=== PATIENT | female | born 1955 | race Caucasian/White ===

== ENCOUNTER 2016-09-01 21:10 | Emergency (ER) | payer BC, OTHER ==
[2016-09-01 21:16] VITALS: BP 160/75; PULSE 73; RESP 18; TEMP 97.4
[2016-09-01] MEDS ORDERED: DIPH,PERTUS(ACELL)TETVAC-LF 0.5 ML VIAL IM ONE (21:34)
[2016-09-01] MEDS ORDERED: HYDROcodone/APAP 5-325MG 1 EACH TAB PO STA (21:34)
--- NOTE | 2016-09-01 21:34 | ED ---
Burn/Smoke HPI - General Chief complaint: Burn/Smoke Inhalation Stated complaint: rt hand burn Time Seen by Provider: 09/01/16 21:19 Source: patient, RN notes reviewed Mode of arrival: ambulatory Limitations: no limitations - History of Present Illness Initial comments: 61-year-old female presents to the burn to the right hand. Patient removed a steel pain and inverted her hand. Patient does not recall her last tetanus. Patient states her pain is moderate worsening movement or touch. Patient states she has no other injuries at this incident. Patient states she was concerned due to her symptoms so she thought that she should be evaluated. Patient denies any recent fever, chills, shortness of breath, chest pain, back pain, abdominal pain, nausea vomiting, numbness or tingling, dysuria or hematuria, constipation or diarrhea, headaches or visual changes, or any other current symptoms. - Related Data Home Medications Medication Instructions Recorded Confirmed Aspirin 81 mg PO DAILY 05/12/14 09/01/16 Ibuprofen [Motrin] 800 mg PO Q8HR PRN 05/12/14 09/01/16 Losartan-Hctz 50-12.5 mg [Hyzaar 1 each PO DAILY 05/12/14 09/01/16 50-12.5] Omeprazole 40 mg PO AC-BRKFST 05/12/14 09/01/16 Atorvastatin [Lipitor] 20 mg PO DAILY 09/01/16 09/01/16 metFORMIN HCL [Glucophage] 500 mg PO BID 09/01/16 09/01/16 Previous Rx's Medication Instructions Recorded Hydrocodone/Acetaminophen [Frederick 1 each PO Q6HR PRN #5 tab 09/01/16 5-325] Allergies Allergy/AdvReac Type Severity Reaction Status Date / Time latex AdvReac Mild Rash/Hives Verified 09/01/16 21:16 Sulfa (Sulfonamide AdvReac Rash/Hives Verified 09/01/16 21:16 Antibiotics) Review of Systems ROS Statement: Those systems with pertinent positive or pertinent negative responses have been documented in the HPI. ROS Other: All systems not noted in ROS Statement are negative. Past Medical History Past Medical History: GERD/Reflux, Hypertension Additional Past Medical History / Comment(s): FELL 05/07/14 AND INJURED RT HAND- STATES IT IS BRUISED AND SWOLLEN History of Any Multi-Drug Resistant Organisms: None Reported Past Surgical History: Cholecystectomy, Tubal Ligation Additional Past Surgical History / Comment(s): colonoscopy Past Anesthesia/Blood Transfusion Reactions: No Reported Reaction Smoking Status: Former smoker Past Alcohol Use History: Heavy, Occasional Past Drug Use History: None Reported - Past Family History Father Family Medical History: Cancer General Exam - General Exam Comments Initial Comments: General: The patient is awake and alert, in no distress, and does not appear acutely ill. Neck: The neck is supple, there is no tenderness. Cardiovascular: There is a regular rate and rhythm. No murmur, rub or gallop is appreciated. Respiratory: Lungs are clear to auscultation, respirations are non-labored, breath sounds are equal. No wheezes, stridor, rales, or rhonchi. Musculoskeletal: Sensation intact with 2+ pulses. X-ray. Fund motion of right wrist and right hand. Patient is. Of second-degree burn to the palm and first degree ndiaye noted around. Full range of motion. 5 out of 5 muscle strength testing. Neurological: CN II-XII intact, There are no obvious motor or sensory deficits. Coordination appears grossly intact. Speech is normal. Skin: Skin is warm and dry and no rashes or lesions are noted. Psychiatric: Normal mood and affect. Limitations: no limitations Course Vital Signs 09/01/16 21:13 Temperature 97.4 F L Pulse Rate 73 Respiratory 18 Rate Blood Pressure 160/75 O2 Sat by Pulse 99 Oximetry Medical Decision Making - Medical Decision Making 65-year-old female presents for appears to be a first and second-degree burn to the right hand. This time we discussed care follow-up return parameters. We discussed all the patient's questions. He stated the Damien management. The plan. They will be discharged home. Disposition Clinical Impression: Burn of hand, right, second degree Disposition: HOME SELF-CARE Condition: Stable Instructions: Second Degree Burn (ED) Additional Instructions: Please use medication as discussed. Please follow up with family doctor if symptoms have not improved over the next two days. Please return to the emergency room if your symptoms increase or worsen or for any other concerns. Prescriptions: Hydrocodone/Acetaminophen [Frederick 5-325] 1 each PO Q6HR PRN #5 tab PRN Reason: Pain Referrals: Cesar Asif III, MD [Primary Care Provider] - 1-2 days Time of Disposition: 21:34
== END 2016-09-01 22:08 | disposition home or self-care (01) ==
LOC: EC 21:10
DX: T23.251A Burn of second degree of right palm, initial encounter (principal); X15.3XXA Contact with hot saucepan or skillet, initial encounter; Y93.G3 Activity, cooking and baking; Z23 Encounter for immunization; K21.9 Gastro-esophageal reflux disease without esophagitis; I10 Essential (primary) hypertension; Z88.2 Allergy status to sulfonamides; Z91.040 Latex allergy status; Z79.899 Other long term (current) drug therapy; Z79.82 Long term (current) use of aspirin
CPT/HCPCS: 16020; 90471; 90715; 99283

== ENCOUNTER → 2017-04-11 | Outpatient (CLI) | payer OTHER ==
--- NOTE | 2017-04-15 10:27 | MM ---
Reason for exam: screening (asymptomatic). Last mammogram was performed 2 years and 9 months ago. History: Patient is postmenopausal and had first child at age 30. Physical Findings: A clinical breast exam by your physician is recommended on an annual basis and results should be correlated with mammographic findings. MG Screening Mammo w CAD Bilateral CC and MLO view(s) were taken. Prior study comparison: July 15, 2014, bilateral MG screening mammo w CAD. May 21, 2013, bilateral digital screening mammo w/CAD. There are scattered fibroglandular densities. No significant changes when compared with prior studies. ASSESSMENT: Negative, BI-RAD 1 RECOMMENDATION: Routine screening mammogram of both breasts in 1 year.
== END | disposition home or self-care (01) ==
LOC: RADMAMWWP 09:49
PROVIDERS: ATTEND Family Medicine
DX: Z12.31 Encounter for screening mammogram for malignant neoplasm of breast (principal)
CPT/HCPCS: 77067

== ENCOUNTER → 2018-05-22 | Outpatient (CLI) | payer OTHER ==
--- NOTE | 2018-05-26 17:40 | BD ---
EXAMINATION TYPE: Axial Bone Density DATE OF EXAM: 05/22/2018 COMPARISON: NONE CLINICAL HISTORY: 62 YR OLD FEMALE....ICD-10 CODE: Z78.0 POST MENOPAUSAL Height: 65 Weight: 198 FRAX RISK QUESTIONS: History of Fracture in Adulthood: YES RISK FACTORS HISTORY OF: HX OF LT FOOT FX >50 YRS OLD Family History of Osteoporosis: YES, PATERNAL Active: YES Diet low in dairy products/other sources of calcium: YES Postmenopausal woman: YES AT AGE 51 YRS OLD MEDICATIONS: Additional Medications: BP MEDS, METFORMIN, REFLUX MEDS, STATIN FOR CHOLESTEROL, VIT D Additional History: HYPERTENSION, DIABETIC, REFLUX AND CHOLESTEROL EXAM MEASUREMENTS: Bone mineral densitometry was performed using the [employer] System. Bone mineral density as measured about the Lumbar spine is: ----- L1-L4(G/cm2): 1.248 T Score Values are as follows: ----- L1: 1.1 ----- L2: 0.4 ----- L3: -0.1 ----- L4: 0.9 ----- L1-L4: 0.6 Bone mineral density FIRST BONE DENSITY SCAN......BASELINE STUDY Bone mineral density about the R hip (g/cm2): 0.872 Bone mineral density about the L hip (g/cm2): 0.875 T Score values are as follows: -----R Neck: -1.1 -----L Neck: -1.9 -----R Total: -1.1 -----L Total: -1.1 Bone mineral density IS FIRST DEXA SCAN....BASELINE STUDY FRAX%s: THERE IS A 15.8% CHANCE FOR A MAJOR OSTEOPOROTIC FX AND A 2.1% FOR HIP.....PROBABILITY OF F X IN 10 YRS TIME IMPRESSION: Osteopenia (T Score between -2.5 and -1). There is slightly increased risk of fracture and the patient may be considered for treatment. Re-Screen 2-5 years. NOTE: T-SCORE=SD OF THE YOUNG ADULT MEAN.
== END | disposition home or self-care (01) ==
LOC: RADBDWWP 12:52
PROVIDERS: ATTEND Family Medicine
DX: Z13.820 Encounter for screening for osteoporosis (principal); M85.80 Other specified disorders of bone density and structure, unspecified site; Z78.0 Asymptomatic menopausal state
CPT/HCPCS: 77080

== ENCOUNTER → 2019-08-31 | Outpatient (CLI) | payer MEDICARE, BC ==
--- NOTE | 2019-09-01 13:28 | MM ---
Reason for exam: screening (asymptomatic). Last mammogram was performed 2 years and 5 months ago. History: Patient is postmenopausal and had first child at age 30. Physical Findings: A clinical breast exam by your physician is recommended on an annual basis and results should be correlated with mammographic findings. MG 3D Screening Mammo W/Cad Bilateral CC and MLO view(s) were taken. Prior study comparison: April 11, 2017, bilateral MG screening mammo w CAD. July 15, 2014, bilateral MG screening mammo w CAD. There are scattered fibroglandular densities. No significant changes when compared with prior studies. ASSESSMENT: Benign, BI-RAD 2 RECOMMENDATION: Routine screening mammogram of both breasts in 1 year.
== END | disposition home or self-care (01) ==
LOC: RADMAMWWP 11:29
PROVIDERS: ATTEND Family Medicine
DX: Z12.31 Encounter for screening mammogram for malignant neoplasm of breast (principal)
CPT/HCPCS: 77063; 77067

== ENCOUNTER → 2020-11-10 | Outpatient (CLI) | payer MEDICARE, BC ==
[2020-11-10 11:58] LABS: Basophils % (A) 0 %; Eosinophils % (A) 1 %; HGB 11.7 gm/dL (11.4-16.0); Lymphocytes # (A) 0.9 k/uL (1.0-4.8); Lymphocytes % (A) 24 %; MCH 28.7 pg (25.0-35.0); MCHC 32.3 g/dL (31.0-37.0); MCV 88.9 fL (80.0-100.0); Mean Platelet Volume 10.2; Monocytes # (A) 0.2 k/uL (0-1.0); Monocytes % (A) 7 %; Neutrophils # (A) 2.4 k/uL (1.3-7.7); Neutrophils % (A) 65 %; Platelet Count 138 k/uL (150-450); RBC 4.05 m/uL (3.80-5.40); RDW 13.5 % (11.5-15.5); WBC 3.6 k/uL (3.8-10.6)
[2020-11-10 12:12] LABS: African American GFR (CKD) >90 (>60 ml/min/1.73 sqM); Anion Gap 5 mmol/L; Blood Urea Nitrogen 14 mg/dL (7-17); Carbon Dioxide 28 mmol/L (22-30); Chloride 97 mmol/L (98-107); Non-African American GFR(CKD) >90 (>60 ml/min/1.73 sqM); Potassium 4.7 mmol/L (3.5-5.1); Sodium 130 mmol/L (137-145)
== END ==
LOC: LABPAT 10:43
PROVIDERS: ATTEND Obstetrics & Gynecology Obstetrics
DX: Z01.818 Encounter for other preprocedural examination (principal); N81.10 Cystocele, unspecified; N81.6 Rectocele; I10 Essential (primary) hypertension; I45.10 Unspecified right bundle-branch block; R94.31 Abnormal electrocardiogram [ECG] [EKG]
CPT/HCPCS: 36415; 80051; 82565; 84520; 85025; 87086; 93005

== ENCOUNTER 2020-11-20 07:42 | Observation (INO) | payer MEDICARE, BC ==
[2020-11-15 14:18] VITALS: BMI 25.3
[~2020-11-20 07:42] MED LIST: ACETAMINOPHEN IV (For NPO) 1,000 MG in EMPTY BAG 1 BAG IVPB PRN; DEXAMETHASONE SOD PHOSPHATE 4 MG/ML 1 ML VIAL IV ONE; HYDROmorphone 0.5 MG/0.5 ML SYRINGE IVP PRN; LIDOCAINE 1% (10MG/ML) FOR IV START INTRADERMA PRN; MIDAZOLAM 2 MG/2 ML VIAL IV PRN; ONDANSETRON 4 MG/2 ML VIAL IVP ONE
[2020-11-20] MEDS: LACTATED RINGERS 1,000 ML IV SCH (08:23)
--- NOTE | 2020-11-20 09:23 | P.HPOB ---
History of Present Illness H&P Date: 11/20/20 Chief Complaint: Uterine procidentia, cystocele, rectocele This is a 65-year-old female with complaints of pelvic pressure. Patient was seen with her primary care with noted increasing discomfort of a cystocele/rectocele. Patient was diagnosed with a small cystocele years ago and she started having issues with that at the end of June after she was doing some extreme yardwork. Patient has been noting increasing pelvic discomfort at that time. Patient frequently has to splint to have a bowel movement. Patient denies any vaginal bleeding. Patient denies urinary incontinence. Review of Systems Constitutional: Denies chills, Denies fatigue, Denies fever Ears, nose, mouth and throat: Denies headache Cardiovascular: Denies leg edema Respiratory: Denies dyspnea Gastrointestinal: Denies constipation, Denies diarrhea Genitourinary: Denies difficulty voiding, Denies mixed incontinence Menstruation: Reports postmenopausal Past Medical History Past Medical History: Cancer, GERD/Reflux, Hyperlipidemia, Hypertension Additional Past Medical History / Comment(s): BUNDLE BRANCH BLOCK- EKG HISTORY, SKIN CANCER History of Any Multi-Drug Resistant Organisms: None Reported Past Surgical History: Cholecystectomy, Tubal Ligation Additional Past Surgical History / Comment(s): colonoscopy Past Anesthesia/Blood Transfusion Reactions: No Reported Reaction Smoking Status: Former smoker - Past Family History Father Family Medical History: Cancer Medications and Allergies Home Medications Medication Instructions Recorded Confirmed Type Aspirin 81 mg PO DAILY 05/12/14 11/14/20 History Ibuprofen [Motrin] 600 mg PO Q8HR PRN 05/12/14 11/14/20 History Losartan-Hctz 50-12.5 mg [Hyzaar 0.5 tab PO DAILY 05/12/14 11/14/20 History 50-12.5] Omeprazole 40 mg PO AC-BRKFST 05/12/14 11/14/20 History Allergies Allergy/AdvReac Type Severity Reaction Status Date / Time latex AdvReac Mild Rash/Hives Verified 11/20/20 08:05 Sulfa (Sulfonamide AdvReac Rash/Hives Verified 11/20/20 08:05 Antibiotics) Exam Osteopathic Statement: *. No significant issues noted on an osteopathic structural exam other than those noted in the History and Physical/Consult. Vital Signs Temp Pulse Resp BP Pulse Ox 11/20/20 08:11 97.9 F 58 L 16 176/83 100 Intake and Output 11/19/20 11/20/20 11/20/20 22:59 06:59 14:59 Other: Weight 75.6 kg Targeted physical exam is performed in this date in general this a well- nourished well-developed non female in no acute distress, breathing is noted to be nonlabored, heart has a regular rate and rhythm, her breast exam is deferred, abdomen is soft and nontender on genitourinary exam the bladder is nontender to palpation a cystocele is present, grade 3, cervix is healthy nontender appearance is healthy, uterus is mobile midline and small, no adnexal masses are appreciated. Rectocele is appreciated, grade 2. Assessment and Plan (1) Uterine procidentia Current Visit: Yes Status: Acute Code(s): N81.3 - COMPLETE UTEROVAGINAL PROLAPSE SNOMED Code(s): 74764119 (2) Cystocele Current Visit: Yes Status: Acute Code(s): ASZ2045 - SNOMED Code(s): 479046058 (3) Rectocele Current Visit: Yes Status: Acute Code(s): N81.6 - RECTOCELE SNOMED Code(s): 2446200 Plan: 65-year-old female with desire for definitive treatment for her cystocele, uterine procidentia, rectocele. Patient notes increasing discomfort. Patient failed pessary fitting. Plan vaginal hysterectomy with anterior colporrhaphy, posterior colporrhaphy with cystoscopy, possible total abdominal hysterectomy to complete the procedure. Procedure is reviewed ACOG pamphlet is given to patient prior to surgery to review. Ultrasound was performed no adnexal masses were appreciated uterus is noted to be small and postmenopausal. Risser reviewed with the patient in general including but not limited to infection, bleeding, damage to bladder, bowel, ureteric injury. Patient states understanding and questions are answered. Will proceed.
[2020-11-20] MEDS ORDERED: PROPOFOL 10 MG/ML 20 ML VIAL IV ONE (09:43)
[2020-11-20] MEDS ORDERED: fentaNYL (PF) 50 MCG/ML 2 ML AMP ONE (09:43)
[2020-11-20] MEDS ORDERED: MORPHINE SULFATE (PF) 0.3 MG/0.3 ML SYR ONE (09:43)
[2020-11-20] MEDS ORDERED: LIDOCAINE 1% INJ 10MG/ML (20 ML MDV) ONE (09:43)
[2020-11-20] MEDS ORDERED: SUCCINYLCHOLINE CHLORIDE 100 MG/5 ML SYR IV ONE (09:43)
[2020-11-20] MEDS ORDERED: MIDAZOLAM 2 MG/2 ML VIAL ONE (09:43)
[2020-11-20] MEDS ORDERED: ROCURONIUM 10 MG/ML (5 ML VIAL) IV ONE (09:43)
[2020-11-20] MEDS ORDERED: HYDROmorphone (PF) 1 MG/ML ONE (09:43)
[2020-11-20] MEDS ORDERED: NEOSTIGMINE 1 MG/ML 10 ML VIAL ONE (09:43)
[2020-11-20] MEDS ORDERED: GLYCOPYRROLATE 0.2 MG/ML 2 ML VIAL ONE (09:43)
[2020-11-20] MEDS ORDERED: VASOPRESSIN 20 UNIT/ML 1 ML VIAL SQ ONE (10:09)
[2020-11-20] MEDS ORDERED: BACITRACIN ZINC 500 UNIT/GM OINT 28.4 GM TUBE TOPICAL ONE (10:09)
[2020-11-20] MEDS ORDERED: IBUPROFEN 600 MG TAB PO PRN (11:36)
[2020-11-20] MEDS ORDERED: Acetaminophen-Codeine 300-30mg TAB PO PRN ×2 (11:36)
[2020-11-20] MEDS ORDERED: SIMETHICONE 80 MG CHEWABLE PO PRN (11:36)
[2020-11-20] MEDS ORDERED: IBUPROFEN IV 800 MG in SODIUM CHLORIDE 0.9% 250 ML IV ONE (11:38)
--- NOTE | 2020-11-20 12:56 | P.ANPRN ---
Procedure Note - Anesthesia - Epidural/Spinal Spinal Time Out Performed: Yes Date of Procedure: 11/20/20 Procedure Start Time: 08:51 Procedure Stop Time: 08:55 Location of Patient: PreOp Indication: Acute Post-Operative Pain, Requested by Surgeon Sedation Type: Sedate with meaningful contact maintained Preparation: Sterile Prep Position: Sitting Needle Guage: 25 Blood Aspirated: No Pain Paresthesia on Injection Noted: No Events: Uneventful and Well Tolerated (duramorph 300 david plus fentanyl 25 david)
[2020-11-20] MEDS: ONDANSETRON 4 MG/2 ML VIAL IVP PRN (17:19)
[2020-11-20] MEDS: METOCLOPRAMIDE 5 MG/ML 2 ML VIAL IVP PRN (19:41)
[2020-11-20] MEDS ORDERED: SCOPOLAMINE 1.5MG/72HR PATCH TRANSDERM SCH (20:00)
[2020-11-20] MEDS: SENNOSIDES-DOCUSATE SODIUM 1 EACH TAB PO SCH (21:23)
[2020-11-21] MEDS: ONDANSETRON 4 MG/2 ML VIAL IVP PRN ×2 (00:19→08:26)
[2020-11-21] MEDS: METOCLOPRAMIDE 5 MG/ML 2 ML VIAL IVP PRN (05:29)
[2020-11-21 06:47] LABS: Basophils % (A) 0 %; Eosinophils % (A) 0 %; HGB 10.1 gm/dL (11.4-16.0); Lymphocytes # (A) 0.8 k/uL (1.0-4.8); Lymphocytes % (A) 14 %; MCH 28.6 pg (25.0-35.0); MCHC 32.7 g/dL (31.0-37.0); MCV 87.5 fL (80.0-100.0); Mean Platelet Volume 10.6; Monocytes # (A) 0.3 k/uL (0-1.0); Monocytes % (A) 6 %; Neutrophils # (A) 4.7 k/uL (1.3-7.7); Neutrophils % (A) 79 %; Platelet Count 109 k/uL (150-450); RBC 3.55 m/uL (3.80-5.40); RDW 13.3 % (11.5-15.5)
--- NOTE | 2020-11-21 09:39 | P.PN ---
Subjective Progress Note Date: 11/21/20 Principal diagnosis: POD 1 [facility] [place] patient struggled with nausea and vomiting overnight. she was given reglan for nausea in addition to a scopolamine patch. she states she continues to feel nauseated this am. she hasnt tried even clear liquids due to nausea. she had a small amount of bleeding vaginally with vomiting but that resolved. she denies pain. she is noting some right calf pain with nurse assessment this am. she has her PAS sticking on as she has been in bed with the nausea. Objective - Vital Signs Vital signs: Vital Signs Temp 97.7 F 11/21/20 08:00 Pulse 61 11/21/20 08:00 Resp 18 11/21/20 08:00 BP 110/64 11/21/20 08:00 Pulse Ox 100 11/21/20 08:00 Intake & Output 11/20/20 11/21/20 11/21/20 18:59 06:59 18:59 Intake Total 1400 600 Output Total 1252 820 1 Balance 148 -220 -1 Weight 75.6 kg Intake: IV 1400 Intake, IV Titration 600 Amount Lactated Ringers 1,000 ml 600 @ 20 mls/hr IV .Q24H LE Rx#:[id number] Output: Urine 700 700 Uretheral (Chen) 300 Emesis 402 120 1 Estimated Blood Loss 150 Other: Voiding Method Indwelling Catheter - Constitutional General appearance: Present: average body habitus, cooperative, no acute distress - Gastrointestinal Gastrointestinal Comment(s): soft non tender. - Genitourinary Genitourinary Comment(s): pad examined with minimal old blood appreciated. - Labs CBC & Chem 7: 11/21/20 06:31 Labs: Abnormal Lab Results - Last 24 Hours (Table) 11/21/20 Range/Units 06:31 RBC 3.55 L (3.80-5.40) m/uL Hgb 10.1 L (11.4-16.0) gm/dL Hct 31.0 L (34.0-46.0) % Plt Count 109 L (150-450) k/uL Lymphocytes # 0.8 L (1.0-4.8) k/uL Assessment and Plan (1) Uterine procidentia Current Visit: Yes Status: Acute Code(s): N81.3 - COMPLETE UTEROVAGINAL PROLAPSE SNOMED Code(s): 99961110 (2) Cystocele Current Visit: Yes Status: Acute Code(s): GJC3065 - SNOMED Code(s): 655807948 (3) Rectocele Current Visit: Yes Status: Acute Code(s): N81.6 - RECTOCELE SNOMED Code(s): 6345459 Plan: patient is struggling with post operative nausea and vomitting this am, will plan to continue IVF and antiemetics. chen discontinued this am, will await spontaneous void. reevaluate patient condition later this afternoon.
[2020-11-21] MEDS: SENNOSIDES-DOCUSATE SODIUM 1 EACH TAB PO SCH ×2 (10:09→22:29)
[2020-11-21] MEDS ORDERED: ACETAMINOPHEN TAB 325 MG TAB PO PRN (11:38)
[2020-11-21] MEDS: PANTOPRAZOLE 40 MG TABLET PO SCH (21:26)
[2020-11-22] MEDS: LACTATED RINGERS 1,000 ML IV SCH (00:06)
[2020-11-22 02:21] VITALS: PULSE 54
[2020-11-22] MEDS: PANTOPRAZOLE 40 MG TABLET PO SCH (07:49)
[2020-11-22] MEDS: SENNOSIDES-DOCUSATE SODIUM 1 EACH TAB PO SCH (07:49)
[2020-11-22 08:35] VITALS: BP 144/83; RESP 16; TEMP 98.1
--- NOTE | 2020-11-22 09:02 | P.PN ---
Subjective Progress Note Date: 11/22/20 Principal diagnosis: Postop day 2, vaginal hysterotomy, anterior colporrhaphy, posterior colporrhaphy Patient is doing well this morning. She states she feels much more awake from anesthesia. She has multiple spontaneous voids. Postvoid residuals remain a proximally 200. Patient denies any vaginal bleeding. Nausea and vomiting has resolved. She states her pain is well-controlled. Objective - Vital Signs Vital signs: Vital Signs Temp 98.1 F 11/22/20 08:07 Pulse 54 L 11/22/20 08:07 Resp 16 11/22/20 08:07 BP 144/83 11/22/20 08:07 Pulse Ox 94 L 11/22/20 08:07 Intake & Output 11/21/20 11/22/20 11/22/20 18:59 06:59 18:59 Output Total 851 3650 Balance -851 -3650 Output: Urine 850 1825 Post Void Residual 0 1825 Emesis 1 Other: Voiding Method Toilet # Voids 2 - Constitutional General appearance: Present: average body habitus, cooperative, no acute distress - Gastrointestinal General gastrointestinal: Present: normal bowel sounds, soft - Genitourinary Genitourinary Comment(s): No bleeding appreciated. Repair appears intact. - Psychiatric Psychiatric: Present: A&O x's 3, appropriate affect, intact judgment & insight - Labs CBC & Chem 7: 11/21/20 06:31 Assessment and Plan (1) Uterine procidentia Current Visit: Yes Status: Acute Code(s): N81.3 - COMPLETE UTEROVAGINAL PROLAPSE SNOMED Code(s): 89455307 (2) Cystocele Current Visit: Yes Status: Acute Code(s): UFB5744 - SNOMED Code(s): 530442567 (3) Rectocele Current Visit: Yes Status: Acute Code(s): N81.6 - RECTOCELE SNOMED Code(s): 9378842 Plan: Patient is doing well this morning. Ambulating and voiding without difficulty. We will do a couple more postvoid residual to assess urinary function. Advance diet to regular. Inspected discharge home later today.
--- NOTE | 2020-11-22 13:35 | P.DS ---
Providers Date of admission: 11/21/20 07:40 Expected date of discharge: 11/22/20 Attending physician: Aminah Ashford Primary care physician: Caprice Wells - Discharge Diagnosis(es) (1) Uterine procidentia Current Visit: Yes Status: Acute (2) Cystocele Current Visit: Yes Status: Acute (3) Rectocele Current Visit: Yes Status: Acute Hospital Course: This is a 65 yo female with known pelvic organ prolapse that presented to the hospital for scheduled VH/AC/PC. she underwent surgery [facility]. post operatively she did struggle with significant nausea and vomiting. she had resolution of the nausea and vomiting yesterday afternoon. she has been tolerating clear liquids and a regular diet now without nausea or vomiting. she in addition had some difficulty with spontaneous voids. she would void without feeling pressure to go and note a post void residual of 200. This am she had a spontaneous void of 700cc, with a post void residual of <50cc. she is feeling well and would like to go home. pain is well controlled with motrin and tylenol. Patient Condition at Discharge: Good Plan - Discharge Summary Discharge Rx Participant: Yes New Discharge Prescriptions: No Action Omeprazole 40 mg PO AC-BRKFST Ibuprofen [Motrin] 600 mg PO Q8HR PRN PRN Reason: Pain Aspirin 81 mg PO DAILY Losartan-Hctz 50-12.5 mg [Hyzaar 50-12.5] 0.5 tab PO DAILY Discharge Medication List Aspirin 81 mg PO DAILY 05/12/14 [History] Ibuprofen [Motrin] 600 mg PO Q8HR PRN 05/12/14 [History] Losartan-Hctz 50-12.5 mg [Hyzaar 50-12.5] 0.5 tab PO DAILY 05/12/14 [History] Omeprazole 40 mg PO AC-BRKFST 05/12/14 [History] Follow up Appointment(s)/Referral(s): Aminah Ashford DO [Doctor of Osteopathic Medicine] - 2 Weeks Patient Instructions/Handouts: Vaginal Hysterectomy (DC) Activity/Diet/Wound Care/Special Instructions: Spotting is a normal occurrence. If you develop heavy flow or concerns contact OBGYN office No heavy lifting, pushing or pulling anything weighing over a gallon of milk Discharge Disposition: HOME SELF-CARE
--- NOTE | 2020-11-23 13:01 | P.OP ---
Date of Procedure: 11/20/20 Preoperative Diagnosis: Uterine procidentia, cystocele grade 3, rectocele grade 2 Postoperative Diagnosis: Same Procedure(s) Performed: Vaginal hysterectomy, anterior colporrhaphy, posterior colporrhaphy Anesthesia: GETA Surgeon: Aminah Ashford Director Of [employer] #1: Ana Goldberg Estimated Blood Loss (ml): 150 IV fluids (ml): 900 Urine output (ml): 400 Pathology: other (Uterus cervix) Condition: stable Disposition: PACU Indications for Procedure: Symptomatically pelvic prolapse Operative Findings: Small postmenopausal uterus, ovaries normal bilaterally, after completion of the anterior colporrhaphy clear yellow urine was noted draining from the Thompson catheter. Rectal exam after rectocele repair revealed normal rectal mucosa. Description of Procedure: Patient was taken back to the operating suite where general anesthesia was obtained without difficulty by the anesthesia department. She was then prepped and draped in normal sterile fashion in the dorsal lithotomy position. A short weighted speculum was placed in the posterior vaginal vault. A latex free catheter was used to drain the bladder of clear yellow urine. A double-tooth tenaculum was used to grasp the cervix at 6:00, vasopressin was injected circumferentially around the cervix. A scalpel was used to circumferentially incise the vaginal mucosa off of the cervix. A Ray-Ricardo was then used to dissect the vaginal mucosa off of the cervix. The posterior cul-de-sac was then entered sharply and a longbilled weighted speculum was placed in the posterior vaginal vault. A Arlene clamp was then used to grasp the uterosacral ligaments these were transected and suture ligated. The bladder was then further dissected away from the operating field. The uterine arteries were then clamped with Arlene clamp, transected and suture ligated. Hemostasis was appreciated. This was performed bilaterally. An additional bite was taken with a Arlene clamp bilaterally, these were transected and suture ligated. Hemostasis was appreciated. A Arlene clamp was then used to clamp the bilateral uterine ovarian ligament. These were transected and suture ligated hemostasis was appreciated bilaterally. All pedicles were visualized and found to be hemostatic. Vaginal cuff mucosa was then closed with [id number] sutures of 0 Vicryl. The anterior colporrhaphy was then begun with injection of vasopressin the midline vaginal mucosa midline. A small incision was made with the vaginal mucosa with the Metzenbaum scissors, to dissect the mucosa off of the cystocele. The cut edges were held and splayed laterally with Allis clamps. The bladder was dissected along the lateral edges a combination of sharp and blunt dissection. A series of 2-0 Vicryl interrupted sutures were then placed sequentially along the lateral folds of the vesical vaginal space and brought together to tuck the bladder back while simultaneously bringing the lateral vaginal tissue together. The excess vaginal mucosa was then trimmed and the vagina was closed with a running locked 0 Vicryl suture. The Thompson catheter revealed clear yellow urine. The rectocele was then begun. Dilute vasopressin was infiltrated another posterior vaginal mucosa midline and into the perineal body. An inverted triangle was cut on the perineum. The posterior vaginal wall was opened vertically and midline up to the apex of the rectocele. The cut edges were then held and splayed laterally with a series of Allis clamps. The open vaginal mucosa was then dissected laterally with accommodation sharp and blunt dissectio n, exposing the perirectal fascia. The perirectal fascia was then reapproximated with interrupted 2-0 Vicryl sutures to draw the lateral folds together and talk the rectocele back. The excess vaginal mucosa was then trimmed. The posterior vaginal wall was then closed with running locked 2-0 Vicryl. The superficial perineal muscles were closed with running unlocked 0 Vicryl and the perineal skin was closed with running subcuticular. Rectal exam was done throughout the repair and at the end of the closure to ensure there were no sutures penetrating the rectal tissue. At the end of the procedure all sponge instrument and #were counted and found to be correct. Estimated blood loss 150 mL's. The Thompson catheter was draining clear yellow urine throughout the procedure. Patient tolerated procedure well and was taken the recovery room awake in stable condition.
== END 2020-11-22 14:16 | disposition home or self-care (01) ==
LOC: OR 07:42 → 6PED 11:34 → OR 11-21 07:32 → 6PED 11-21 07:40
PROVIDERS: ADMIT Obstetrics & Gynecology Obstetrics; ATTEND Obstetrics & Gynecology Obstetrics
DX: N81.3 Complete uterovaginal prolapse (principal); R11.2 Nausea with vomiting, unspecified; I10 Essential (primary) hypertension; E78.5 Hyperlipidemia, unspecified; Z79.82 Long term (current) use of aspirin; Z20.822 Contact with and (suspected) exposure to COVID-19; Z85.828 Personal history of other malignant neoplasm of skin; Z87.891 Personal history of nicotine dependence
CPT/HCPCS: 58270; 88305; 85025; 87635; G0378 ×2; C1762; J2250; J1100; J2710; J2765 ×2; J0690; J2405 ×2; J2001; J2274; J3010; J1170; J0131; J0330; J2704; 86850; 86900; 86901

== ENCOUNTER → 2021-12-12 | Outpatient (CLI) | payer MEDICARE, BC ==
--- NOTE | 2021-12-13 08:44 | MM ---
Reason for Exam: Screening (asymptomatic). Last mammogram was performed 1 year(s) and 1 month(s) ago. Patient History: Menarche at age 15. First Full-Term at age 30. Late child-bearing (after 30). Hysterectomy at age 65. Postmenopausal. Patient has history of breast feeding. Patient used Hormonal Contraceptives for 10 years. Risk Values: Lili 5 year model risk: 2.1%. NCI Lifetime model risk: 7.2%. Prior Study Comparison: 07/24/2002 Screening Mammogram, [facility]. 04/26/2005 Bilateral Screening Mammogram, [facility]. 11/13/2007 Bilateral Screening Mammogram, [facility]. 05/21/2013 Bilateral Screening Mammogram, [facility]. 07/15/2014 Bilateral Screening Mammogram, [facility]. 04/11/2017 Bilateral Screening Mammogram, [facility]. 08/31/2019 Bilateral Screening Mammogram, [facility]. 11/09/2020 Bilateral MG 3D screening mammo w/cad, [facility]. Tissue Density: There are scattered fibroglandular densities. Findings: Analyzed By CAD. There is no suspicious group of microcalcifications or new suspicious mass in either breast. No significant change from prior exams. Overall Assessment: Negative, BI-RAD 1 Management: Screening Mammogram of both breasts in 1 year. A clinical breast exam by your physician is recommended on an annual basis and results should be correlated with mammographic findings. Electronically signed and approved by: Kieran Solomon D.O.
--- NOTE | 2021-12-13 08:44 | MM ---
Reason for Exam: Screening (asymptomatic). Last mammogram was performed 1 year(s) and 1 month(s) ago. Patient History: Menarche at age 15. First Full-Term at age 30. Late child-bearing (after 30). Hysterectomy at age 65. Postmenopausal. Patient has history of breast feeding. Patient used Hormonal Contraceptives for 10 years. Risk Values: Lili 5 year model risk: 2.1%. NCI Lifetime model risk: 7.2%. Prior Study Comparison: 07/24/2002 Screening Mammogram, [facility]. 04/26/2005 Bilateral Screening Mammogram, [facility]. 11/13/2007 Bilateral Screening Mammogram, [facility]. 05/21/2013 Bilateral Screening Mammogram, [facility]. 07/15/2014 Bilateral Screening Mammogram, [facility]. 04/11/2017 Bilateral Screening Mammogram, [facility]. 08/31/2019 Bilateral Screening Mammogram, [facility]. 11/09/2020 Bilateral MG 3D screening mammo w/cad, [facility]. Tissue Density: There are scattered fibroglandular densities. Findings: Analyzed By CAD. There is no suspicious group of microcalcifications or new suspicious mass in either breast. No significant change from prior exams. Overall Assessment: Negative, BI-RAD 1 Management: Screening Mammogram of both breasts in 1 year. A clinical breast exam by your physician is recommended on an annual basis and results should be correlated with mammographic findings. Electronically signed and approved by: Kieran Solomon D.O.
== END | disposition home or self-care (01) ==
LOC: RADMAMWWP 15:36
PROVIDERS: ATTEND Family Medicine
DX: Z12.31 Encounter for screening mammogram for malignant neoplasm of breast (principal); Z78.0 Asymptomatic menopausal state
CPT/HCPCS: 77063; 77067

== ENCOUNTER → 2022-12-31 | Outpatient (CLI) | payer MEDICARE, BC ==
--- NOTE | 2022-12-31 18:52 | BD ---
EXAMINATION TYPE: Axial Bone Density DATE OF EXAM: 12/31/2022 CLINICAL HISTORY: 67 years old Female. ICD-10 CODE: M85.89 disorder of bone Height: 64 Weight: 169.5 FRAX RISK QUESTIONS: Alcohol (3 or more units per day): no Family History (Parent hip fracture): no Glucocorticoids (More than 3mos): no (Ex: prednisone, prednisolone, methylprednisolone, dexamethasone, and hydrocortisone). History of Fracture in Adulthood: yes Secondary Osteoporosis: 1. Type 1 Diabetes: no 2. Hyperthyroidism: no 3. Menopause before 45: no 4. Malnutrition: no 5. Chronic liver disease: no Rheumatoid Arthritis: no Current Tobacco Use: no RISK FACTORS HISTORY OF: Surgery to Spine/Hip(right/left)/Wrist (right/left): no Family History of Osteoporosis: no Active: yes Diet low in dairy products/other sources of calcium: no Postmenopausal woman: yes Additional History: EXAM MEASUREMENTS: Bone mineral densitometry was performed using the [employer] System. Bone mineral density as measured about the Lumbar spine is: ----- L1-L4(G/cm2): 1.048 T Score Values are as follows: ----- L1: -1.5 ----- L2: -1.9 ----- L3: -0.8 ----- L4: -0.5 ----- L1-L4: -1.1 Z Score Values are as follows: ----- L1: -0.2 ----- L2: -0.6 ----- L3: 0.4 ----- L4: 0.7 ----- L1-L4: 0.1 Bone mineral density has: decreased -16.0 % since study of: 05.22.2018 Bone mineral density about the R hip (g/cm2): 0.736 Bone mineral density about the L hip (g/cm2): 0.717 T Score values are as follows: -----R Neck: -2.1 -----L Neck: -2.5 -----R Total: -2.2 -----L Total: -2.3 Z Score values are as follows: -----R Neck: -0.8 -----L Neck: -1.2 -----R Total: -1.1 -----L Total: -1.2 Bone mineral density has: decreased -16.7 % since study of: 05.22.2018 FRAX%s: The graph provided illustrates a 22.5% chance for a major osteoporotic fx and a 5.4% chance f or the hips probability for fx in 10 years time. IMPRESSION: Osteopenia (T Score between -2.5 and -1). There is slightly increased risk of fracture and the patient may be considered for treatment. Re-Screen 2-5 years. NOTE: T-SCORE=SD OF THE YOUNG ADULT MEAN.
--- NOTE | 2023-01-01 23:35 | MM ---
Reason for Exam: Screening (asymptomatic). Last mammogram was performed 1 year(s) and 1 month(s) ago. Patient History: Menarche at age 15. First Full-Term at age 30. Late child-bearing (after 30). Hysterectomy at age 65. Postmenopausal. Patient has history of breast feeding. Patient used Hormonal Contraceptives for 10 years. Risk Values: Lili 5 year model risk: 2.1%. NCI Lifetime model risk: 6.9%. Prior Study Comparison: 08/31/2019 Bilateral Screening Mammogram, [facility]. 11/09/2020 Bilateral MG 3D screening mammo w/cad, [facility]. 12/12/2021 Bilateral MG 3D screening mammo w/cad, [facility]. Tissue Density: There are scattered fibroglandular densities. Findings: Analyzed By CAD. There is no suspicious group of microcalcifications or new suspicious mass in either breast. Overall Assessment: Negative, BI-RAD 1 Management: Screening Mammogram of both breasts in 1 year. . Patient should continue monthly self-breast exams. A clinical breast exam by your physician is recommended on an annual basis. This exam should not preclude additional follow-up of suspicious palpable abnormalities. Note on Lili scores and lifetime risk: 1. A Lili score greater than 3% is considered moderate risk. If this is the case, consider specialist referral to assess eligibility for a risk reducing agent. 2. If overall lifetime risk for the development of breast cancer is 20% or higher, the patient may qualify for future screening with alternating mammogram and breast MRI. Electronically signed and approved by: Florentino Garcia M.D. Radiologist
== END | disposition home or self-care (01) ==
LOC: RADMAMWWP 16:04
PROVIDERS: ATTEND Family Medicine
DX: Z12.31 Encounter for screening mammogram for malignant neoplasm of breast (principal); M85.89 Other specified disorders of bone density and structure, multiple sites; M81.0 Age-related osteoporosis without current pathological fracture; Z78.0 Asymptomatic menopausal state
CPT/HCPCS: 77063; 77067; 77080

== ENCOUNTER → 2024-01-19 | Outpatient (CLI) | payer MEDICARE ==
--- NOTE | 2024-01-21 15:03 | MM ---
Reason for Exam: Screening (asymptomatic). Last screening mammogram was performed 12 month(s) ago. Patient History: Menarche at age 15. First Full-Term at age 30. Late child-bearing (after 30). Hysterectomy at age 65. Postmenopausal. Patient has history of breast feeding. Patient used Hormonal Contraceptives for 10 years. Risk Values: Lili 5 year model risk: 2.2%. NCI Lifetime model risk: 6.6%. Prior Study Comparison: 11/09/2020 Bilateral MG 3D screening mammo w/cad, [facility]. 12/12/2021 Bilateral MG 3D screening mammo w/cad, [facility]. 12/31/2022 Bilateral MG 3D screening mammo w/cad, [facility]. Tissue Density: There are scattered areas of fibroglandular density. Findings: Analyzed By CAD. There is no suspicious group of microcalcifications or new suspicious mass in either breast. Overall Assessment: Negative, BI-RAD 1 Management: Screening Mammogram of both breasts in 1 year. Patient should continue monthly self-breast exams. A clinical breast exam by your physician is recommended on an annual basis. This exam should not preclude additional follow-up of suspicious palpable abnormalities. Note on Lili scores and lifetime risk: 1. A Lili score greater than 3% is considered moderate risk. If this is the case, consider specialist referral to assess eligibility for a risk reducing agent. 2. If overall lifetime risk for the development of breast cancer is 20% or higher, the patient may qualify for future screening with alternating mammogram and breast MRI. [facility], , 01/21/2024 3:00 PM. Electronically signed and approved by: Florentino Garcia M.D. Radiologist
== END | disposition home or self-care (01) ==
LOC: RADMAMWWP 14:53
PROVIDERS: ATTEND Family Medicine
DX: Z12.31 Encounter for screening mammogram for malignant neoplasm of breast (principal); Z78.0 Asymptomatic menopausal state; R92.323 Mammographic fibroglandular density, bilateral breasts
CPT/HCPCS: 77063; 77067